=== PATIENT | male | born 1965 | race Caucasian/White ===

== ENCOUNTER 2016-10-03 13:52 | Observation (INO) | payer BC, MEDICAID ==
--- NOTE | 2016-10-03 13:58 | EDM.PDOC ---
ED HPI GENERAL MEDICAL PROBLEM - General Chief Complaint: Chest Pain Stated Complaint: CHEST PAINS, HIGH BLOOD PRESSURE Time Seen by Provider: 10/03/16 13:55 Source of Information: Reports: Patient History Limitations: Reports: No Limitations - History of Present Illness Onset: Gradual Onset Date: 10/03/16 Treatments PREMIUM REPRESENTATIVE: Reports: Other (see below) (took 2 aspirin prior to arrival) Chest Pain Score (Numeric/FACES): 5 - Related Data Allergies Allergy/AdvReac Type Severity Reaction Status Date / Time No Known Allergies Allergy Verified 10/03/16 13:58 Home Meds: Home Meds Allopurinol [Zyloprim] 100 mg PO BID 12/04/14 [History] Aspirin 81 mg PO DAILY 12/04/14 [History] Lisinopril [Prinivil] 20 mg PO DAILY 12/04/14 [History] Propranolol [Inderal LA] 80 mg PO DAILY 12/04/14 [History] Calcium Carbonate/Vitamin D3 [Calcium 500-Vit D3 600 Tablet] 1 tab PO DAILY [History] Lycopene 1 cap PO DAILY 10/03/16 [History] Multivitamins [Tab-A-Ender] 1 tab PO DAILY 10/03/16 [History] Potassium Chloride 20 meq PO DAILY 10/03/16 [History] Past Medical History Cardiovascular History: Reports: Other (See Below) (chest pain 2 years ago. myocardial perfusion test/stress test 11/2014 unremarkable. h/o high blood pressure on propranolol, took dose 5 am today.) ED ROS GENERAL - Review of Systems Review Of Systems: See Below Constitutional: Reports: Fatigue HEENT: Reports: No Symptoms Respiratory: Reports: No Symptoms Cardiovascular: Reports: Chest Pain Endocrine: Reports: No Symptoms GI/Abdominal: Reports: No Symptoms : Reports: No Symptoms Musculoskeletal: Reports: No Symptoms Skin: Reports: No Symptoms Neurological: Reports: No Symptoms Psychiatric: Reports: No Symptoms Hematologic/Lymphatic: Reports: No Symptoms Immunologic: Reports: No Symptoms ED EXAM, DIZZINESS - Physical Exam Exam: See Below Exam Limited By: No Limitations General Appearance: Alert, No Apparent Distress Ears: Normal External Exam, Normal Canal, Hearing Grossly Normal, Normal TMs Nose: Normal Inspection, Normal Mucosa, No Blood Throat/Mouth: Normal Inspection, Normal Lips, Normal Teeth, Normal Gums, Normal Oropharynx, Normal Voice, No Airway Compromise Head Exam: Atraumatic, Normocephalic Neck: Normal Inspection, Supple, Non-Tender, Full Range of Motion Respiratory/Chest: No Respiratory Distress, Lungs Clear, Normal Breath Sounds, No Accessory Muscle Use, Chest Non-Tender Cardiovascular: Normal Peripheral Pulses, Regular Rate, Rhythm, No Edema GI/Abdominal: Normal Bowel Sounds, Soft, Non-Tender Neurological: Alert, Normal Mood/Affect, CN II-XII Intact Back Exam: Normal Inspection, Full Range of Motion Extremities: Normal Inspection, No Pedal Edema Psychiatric: Normal Affect, Normal Mood Skin Exam: Warm, Dry, Intact, Normal Color EKG INTERPRETATION EKG Date: 10/03/16 EKG Interpretation Comments: sinus rate 62m , abn r-wave progression v2 /baseline wander in /v5./v6 Course - Vital Signs Text/Narrative:: Pt had taken 2 81mg aspirin prior to arrival. C/O chest pain midsternal and radiating to left since awoke at 5 am. Initial BP 197/107. After 3 sublinqual nitro BP 134/81. Chest pain a 5 out of 10 since 5 am. After 3 sublinqual nitro , pain 1-2 out of [address] Mac, hospitalist surgeon/president. He will admit pt here for ongoing care/evaluation. Discussed with pt and family. He agrees to admission here. Last Recorded V/S: Last Vital Signs Temp 36.0 C 10/03/16 13:58 Pulse 57 L 10/03/16 13:58 Resp 14 10/03/16 13:58 BP 137/86 10/03/16 14:21 Pulse Ox 100 10/03/16 13:58 - Orders/Labs/Meds Orders: Active Orders 24 hr Category Date Time Status EKG 12 Lead [EKG Documentation Completion] [RC] STAT Care 10/03/16 14:00 Active Sodium Chloride 0.9% [Normal Saline] 1,000 ml Med 10/03/16 14:37 Active IV .BOLUS Sodium Chloride 0.9% [Normal Saline] 1,000 ml Med 10/03/16 14:15 Active IV ASDIRECTED Medication Orders Sodium Chloride (Normal Saline) 1,000 mls @ 100 mls/hr IV ASDIRECTED DEANGELO Last Admin: 10/03/16 14:15 Dose: 100 mls/hr Sodium Chloride (Normal Saline) 1,000 mls @ 999 mls/hr IV .BOLUS ONE Stop: 10/03/16 15:37 Labs: Laboratory Tests 10/03/16 10/03/16 10/03/16 Range/Units 14:00 14:00 14:00 WBC 8.2 (5.0-10.0) 10^3/uL RBC 4.63 (4.6-6.2) 10^6/uL Hgb 15.5 (14.0-18.0) g/dL Hct 42.5 (40.0-54.0) % MCV 91.8 (80-100) fL MCH 33.5 (27.0-34.0) pg MCHC 36.5 H (33.0-35.0) g/dL Plt Count 175 (150-450) 10^3/uL Neut % (Auto) 58.6 (42.2-75.2) % Lymph % (Auto) 29.5 (20.5-50.1) % [place] % (Auto) 8.6 H (2-8) % Eos % (Auto) 2.8 (1.0-3.0) % Baso % (Auto) 0.5 (0.0-1.0) % PT 10.5 (9.0-12.0) SEC INR 1.0 (0.9-1.2) APTT 24.4 (22.0-34.0) SEC Sodium 138 (135-145) mmol/L Potassium 4.3 (3.6-5.0) mmol/L Chloride 102 (101-111) mmol/L Carbon Dioxide 28.0 (21.0-31.0) mmol/L Anion Gap 12.3 BUN 11 (7-18) mg/dL Creatinine 1.0 (0.6-1.3) mg/dL Est Cr Clr Drug Dosing 98.77 mL/min Estimated GFR (MDRD) > 60 BUN/Creatinine Ratio 11.00 Glucose 108 H (74-105) mg/dL Calcium 9.6 (8.4-10.2) mg/dl Total Bilirubin 1.4 H (0.2-1.0) mg/dL AST 38 (10-42) IU/L ALT 47 (10-60) IU/L Alkaline Phosphatase 51 (42-121) IU/L Creatine Kinase 112 (26-174) IU/L Troponin I < 0.02 (0.00-0.02) ng/ml B-Natriuretic Peptide 33 (0-100) pg/ml Total Protein 7.0 (6.7-8.2) g/dl Albumin 4.7 (3.2-5.5) g/dl Globulin 2.3 Albumin/Globulin Ratio 2.04 Meds: Medications Generic Name Dose Route Start Last Admin Trade Name Freq PRN Reason Stop Dose Admin Sodium Chloride 1,000 mls @ 100 mls/hr 10/03/16 14:15 10/03/16 14:15 Normal Saline IV 100 mls/hr ASDIRECTED DEANGELO Administration Sodium Chloride 1,000 mls @ 999 mls/hr 10/03/16 14:37 Normal Saline IV 10/03/16 15:37 .BOLUS ONE Discontinued Medications Generic Name Dose Route Start Last Admin Trade Name Freq PRN Reason Stop Dose Admin Nitroglycerin 0.4 mg 10/03/16 13:59 10/03/16 14:21 Nitrostat SL 10/03/16 14:00 0.4 mg ONETIME ONE Administration Departure - Departure Time of Disposition: 14:59 Disposition: Refer to Observation Condition: good Clinical Impression: Chest pain - Discharge Information - My Orders Last 24 Hours: My Active Orders 10/03/16 14:00 EKG 12 Lead [EKG Documentation Completion] [RC] STAT 10/03/16 14:15 Sodium Chloride 0.9% [Normal Saline] 1,000 ml IV ASDIRECTED 10/03/16 14:37 Sodium Chloride 0.9% [Normal Saline] 1,000 ml IV .BOLUS - Assessment/Plan Last 24 Hours: My Active Orders 10/03/16 14:00 EKG 12 Lead [EKG Documentation Completion] [RC] STAT 10/03/16 14:15 Sodium Chloride 0.9% [Normal Saline] 1,000 ml IV ASDIRECTED 10/03/16 14:37 Sodium Chloride 0.9% [Normal Saline] 1,000 ml IV .BOLUS
[2016-10-03] MEDS: Sodium Chloride 0.9% 1,000 ML IV SCH ×2 (14:15→17:03)
[2016-10-03] MEDS: Nitroglycerin 0.4 MG Tab.SL SL ONE ×2 (14:15→14:21)
[2016-10-03 14:33] LABS: CHLORIDE,CL 102 mmol/L (101-111); SODIUM,NA 138 mmol/L (135-145)
[2016-10-03] MEDS ORDERED: Sodium Chloride 0.9% 1,000 ML IV ONE (14:37)
--- NOTE | 2016-10-03 14:53 | CR ---
Clinical history: 50-year-old male chest pain. Interpretation: AP portable chest film unremarkable. Normal cardiac silhouette and no cephalization of vascular flow, signs of alveolar edema or dependent effusion (external flight service specialist leads). No lung mass, hilar lymphadenopathy or new focal lobar infiltrate when compared to 18 October 2010. ([facility] r[facility] cluster surgical sanjay left upper quadrant near the GE junction) No atelectasis/collapse. No pneumothorax. Tray thorax unremarkable. CONCLUSION: No acute new cardiopulmonary abnormality since exam of October 2010.
[2016-10-03] MEDS ORDERED: Ibuprofen 400 MG Tab PO PRN (16:02)
[2016-10-03] MEDS ORDERED: Sodium Chloride 0.9% 10 ML Syringe FLUSH PRN (16:02)
[2016-10-03] MEDS ORDERED: Ondansetron 4 MG Tab.DIS PO PRN (16:02)
[2016-10-03] MEDS ORDERED: Acetaminophen 325 MG Tab PO PRN (16:02)
--- NOTE | 2016-10-03 16:26 | PCM.HP ---
H&P History of Present Illness - General Date of Service: 10/03/16 Admit Problem/Dx: Admission Diagnosis/Problem Admission Diagnosis/Problem Chest pain Source of Information: Patient - History of Present Illness Initial Comments - Free Text/Narative: the patient is a 50-year-old gentleman with a history of anxiety, hypertension. The patient has had the prior cardiac workup for complaints of nonspecific chest symptoms about 2 years ago. Apparently back then the stress test was normal. in the past few weeks the patient has had the problem with the anxiety unable to sleep which is improved off after taking the trazodone in the evenings. The patient woke up around 5:00 morning when was feeling better chest discomfort. This was mid sternal moderate pain. no association with shortness of breath. He also noticed that his blood pressure was high up in the 200s systolic. He was leaking around the big but since symptoms did not improve and the blood pressure was continued to be elevated he came into the emergency room. He was given 3 sublingual nitroglycerin and with that the pain significantly improved. Blood pressure also improved. He says right now has pain 3/10 but only when he is thinking about it when he is distracted he does not feel any pain. He denies recent leg swelling, no cough, no fever. He has a h/o GERD but that has resolved with surgery many years ago. Chest Pain Score (Numeric/FACES): 5 - Related Data Allergies/Adverse Reactions: Allergies Allergy/AdvReac Type Severity Reaction Status Date / Time No Known Allergies Allergy Verified 10/03/16 16:15 Home Medications: Home Meds Allopurinol [Zyloprim] 100 mg PO BID 12/04/14 [History] Aspirin 81 mg PO DAILY 12/04/14 [History] Lisinopril [Prinivil] 20 mg PO DAILY 12/04/14 [History] Propranolol [Inderal LA] 80 mg PO DAILY 12/04/14 [History] Calcium Carbonate/Vitamin D3 [Calcium 500-Vit D3 600 Tablet] 1 tab PO DAILY [History] Lycopene 1 cap PO DAILY 10/03/16 [History] Multivitamins [Tab-A-Ender] 1 tab PO DAILY 10/03/16 [History] Potassium Chloride 20 meq PO DAILY 10/03/16 [History] Past Medical History HEENT History: Reports: Other (See Below) Other HEENT History: wears glasses Cardiovascular History: Reports: Other (See Below) Other Cardiovascular History: Hx chest pain 10 years ago, normal stress test in 2015 Respiratory History: Reports: SOB Psychiatric History: Reports: Anxiety, Other (See Below) (sleep disorder) - Infectious Disease History Infectious Disease History: Reports: Chicken Pox - Past Surgical History Cardiovascular Surgical History: Reports: None GI Surgical History: Reports: Hernia, Abdominal, Other (See Below) Other GI Surgeries/Procedures: Stomach stapled to esophagus for history of bad acid reflux. No further acid reflux issues since this surgery in . Musculoskeletal Surgical History: Reports: Other (See Below) Other Musculoskeletal Surgeries/Procedures:: Hx of vitamin D deficiency Social & Family History - Family History Cardiac: Reports: Hypertension (father) - Tobacco Use Smoking Status *Q: Former Smoker Years of Tobacco use: 15 Packs/Tins Daily: 0.5 Used Tobacco, but Quit: Yes Month Tobacco Last Used: October Second Hand Smoke Exposure: No - Caffeine Use Caffeine Use: Reports: Coffee, Soda - Alcohol Use Days Per Week of Alcohol Use: 6 Number of Drinks Per Day: 2 Total Drinks Per Week: 12 Date of Last Drink: 10/02/16 Time of Last Drink: 21:00 - Recreational Drug Use Recreational Drug Use: No H&P Review of Systems - Review of Systems: Review Of Systems: See Below General: Denies: Fever Pulmonary: Denies: Shortness of Breath, Wheezing, Hemoptysis Cardiovascular: Reports: Chest Pain. Denies: Palpitations Gastrointestinal: Denies: Abdominal Pain Genitourinary: Denies: Dysuria Psychiatric: Denies: Confusion Exam - Exam Exam: See Below - Vital Signs Vital Signs: Last Vital Signs Temp 36.0 C 10/03/16 13:58 Pulse 57 L 10/03/16 13:58 Resp 14 10/03/16 13:58 BP 137/86 10/03/16 14:21 Pulse Ox 100 10/03/16 13:58 Weight: 142.882 kg - Exam Quality Assessment: No: Supplemental Oxygen General: Alert, Oriented Neck: Supple Lungs: Clear to Auscultation, Normal Respiratory Effort Cardiovascular: Regular Rate, Regular Rhythm Abdomen: Normal Bowel Sounds, Soft, Other (obese) Back Exam: Normal Inspection Extremities: Normal Inspection. No: Edema Skin: Warm, Dry, Intact Neuro Extensive - Mental Status: Alert, Oriented x3, Normal Mood/Affect, Normal Cognition - Patient Data Result Diagrams: 10/03/16 14:00 10/03/16 14:00 Imaging Impressions last 24 hrs: chest x-ray, per reading: no acute change *Q Meaningful Use (ADM) - VTE *Q VTE Criteria *Q: - Stroke *Q Stroke Criteria *Q: - AMI *Q AMI Criteria *Q: - Problem List (1) Chest pain SNOMED Code(s): 54808168 ICD Code: R07.9 - CHEST PAIN, UNSPECIFIED Status: Acute Current Visit: Yes (2) Hypertensive urgency SNOMED Code(s): 706279630 ICD Code: I16.0 - HYPERTENSIVE URGENCY Status: Acute Current Visit: Yes Problem List Initiated/Reviewed/Updated: Yes Orders Last 24hrs: Active Orders 24 hr Category Date Time Status Antiembolic Devices [RC] PER UNIT ROUTINE Care 10/03/16 16:04 Ordered Oxygen Therapy [RC] PRN Care 10/03/16 16:02 Ordered Peripheral IV Care [RC] . DIRECTED Care 10/03/16 16:04 Ordered Telemetry Monitoring [Cardiac Monitoring] [RC] . Care 10/03/16 15:58 Ordered DIRECTED Up ad Pennie [RC] ASDIRECTED Care 10/03/16 16:02 Ordered VTE/DVT Education [RC] PER UNIT ROUTINE Care 10/03/16 16:02 Ordered Vital Signs [RC] Q4H Care 10/03/16 16:02 Ordered Regular Diet [DIET] Diet 10/03/16 Dinner Ordered BASIC METABOLIC PANEL,BMP [CHEM] AM Lab 10/04/16 05:15 Ordered CBC WITH AUTO DIFF [HEME] AM Lab 10/04/16 05:15 Ordered TROPONIN I [CHEM] AM Lab 10/04/16 05:11 Ordered TROPONIN I [CHEM] Routine Lab 10/03/16 21:00 Ordered Acetaminophen [Tylenol] Med 10/03/16 16:02 Ordered 650 mg PO Q4H PRN Allopurinol [Zyloprim] Med 10/03/16 21:00 Ordered 100 mg PO BID Aspirin Med 10/04/16 09:00 Ordered 81 mg PO DAILY Heparin Sodium Med 10/03/16 22:00 Ordered 5,000 units SUBCUT Q8HR Ibuprofen [Motrin] Med 10/03/16 16:02 Ordered 400 mg PO Q6H PRN Lisinopril [Prinivil] Med 10/04/16 09:00 Ordered 20 mg PO DAILY Multivitamins [Tab-A-Ender] Med 10/04/16 09:00 Ordered 1 tab PO DAILY Ondansetron [Zofran ODT] Med 10/03/16 16:02 Ordered 4 mg PO Q6H PRN Potassium Chloride [Potassium Chloride] Med 10/04/16 09:00 Ordered 20 meq PO DAILY Propranolol [Inderal LA] Med 10/04/16 09:00 Ordered 80 mg PO DAILY Sodium Chloride 0.9% [Saline Flush] Med 10/03/16 16:02 Ordered 10 ml FLUSH ASDIRECTED PRN traZODone Med 10/03/16 16:15 Ordered 50 mg PO .QHS Antiembolic Hose [OM.PC] Per Unit Routine Oth 10/03/16 16:03 Ordered Peripheral IV Insertion Adult [OM.PC] Routine Oth 10/03/16 16:02 Ordered Saline Lock Insert [OM.PC] Routine Oth 10/03/16 16:02 Ordered Resuscitation Status Routine Resus Stat 10/03/16 16:02 Ordered Medication Orders Acetaminophen (Tylenol) 650 mg PO Q4H PRN PRN Reason: Pain (Mild 1-3)/fever Allopurinol (Zyloprim) 100 mg PO BID [facility] Aspirin (Aspirin) 81 mg PO DAILY [facility] Heparin Sodium (Porcine) (Heparin Sodium) 5,000 units SUBCUT Q8HR [facility] Ibuprofen (Motrin) 400 mg PO Q6H PRN PRN Reason: Pain (mild 1-3) Lisinopril (Prinivil) 20 mg PO DAILY [facility] Multivitamins (Thera) 1 each PO DAILY [facility] Ondansetron HCl (Zofran Odt) 4 mg PO Q6H PRN PRN Reason: nausea, able to take PO Potassium Chloride (Klor-Con 10) 20 meq PO WITHBREAKFAST [facility] Propranolol HCl (Inderal La) 80 mg PO DAILY [facility] Sodium Chloride (Saline Flush) 10 ml FLUSH ASDIRECTED PRN PRN Reason: Keep Vein Open Trazodone HCl (Trazodone) 50 mg PO BEDTIME [facility] Assessment/Plan Comment:: the patient is a 50-year-old gentleman who presented with a blood pressure in the 200 systolic range associated with chest pain. The patient received nitroglycerin and aspirin in the emergency room. Blood pressure improved chest pain is resolving. Chest pain Differential diagnosis includes ischemic cardiac causes This is somewhat less likely due to recent normal stress test, the monitor on telemetry for arrhythmia we'll monitor troponins no apparent pneumonia on chest x-ray No reproducible component for musculoskeletal causes Uncontrolled hypertension, hypertensive urgency with chest pain Blood pressure improved with nitroglycerin. Will monitor blood pressure, continue propranolol for now. Anxiety and sleep disorder Continue trazodone DVT prophylaxis with subcutaneous heparin
[2016-10-03] MEDS ORDERED: traZODone 50 MG Tab PO SCH (21:00)
[2016-10-03] MEDS: Heparin Sodium 5,000 Units/ML Vial SUBCUT SCH (22:26)
[2016-10-03] MEDS: Allopurinol 100 MG Tab PO SCH (22:26)
[2016-10-04] MEDS: Heparin Sodium 5,000 Units/ML Vial SUBCUT SCH (05:48)
[2016-10-04 07:01] LABS: CHLORIDE,CL 103 mmol/L (101-111); SODIUM,NA 139 mmol/L (135-145)
[2016-10-04] MEDS ORDERED: Potassium Chloride 10 MEQ Tab.ER PO SCH (08:00)
[2016-10-04] MEDS ORDERED: Propranolol 80 MG Cap.ER PO SCH (09:00)
[2016-10-04] MEDS ORDERED: Lisinopril 20 MG Tab PO SCH (09:00)
[2016-10-04] MEDS ORDERED: Aspirin 81 MG Tab.Chew PO SCH (09:00)
[2016-10-04] MEDS ORDERED: Multivitamins,Therapeutic Tab PO SCH (09:00)
[2016-10-04] MEDS: Allopurinol 100 MG Tab PO SCH (09:10)
[2016-10-04 09:11] VITALS: BP 148/80
--- NOTE | 2016-10-04 10:40 | PCM.DCSUM1 ---
Discharge Summary - Hospital Course Free Text/Narrative:: the patient is a 50-year-old gentleman with a history of anxiety, hypertension. The patient has had the prior cardiac workup for complaints of nonspecific chest symptoms about 2 years ago. Apparently back then the stress test was normal. in the past few weeks the patient has had the problem with the anxiety unable to sleep which is improved off after taking the trazodone in the evenings. The patient woke up around 5:00 morning when was feeling better chest discomfort. This was mid sternal moderate pain. no association with shortness of breath. He also noticed that his blood pressure was high up in the 200s systolic. He was working around the house but since symptoms did not improve and the blood pressure was continued to be elevated he came into the emergency room. He was given 3 sublingual nitroglycerin and with that the pain significantly improved. Blood pressure also improved. He has a h/o GERD but that has resolved with surgery many years ago. Chest pain during his stay the patient's cardiac enzymes were negative, telemetry showed no significant arrhythmia. Chest pain resolved shortly after admission and did not return Uncontrolled hypertension, hypertensive urgency with chest pain Blood pressure improved with nitroglycerin. continued propranolol and lisinopril the patient has a blood pressure machine at home, he was asked to make a diary. He lives with his diary to his primary care physician on the next visit next week. I asked him if the blood pressure is consistently above 150 to increase his listener twice a day dosing. Anxiety and sleep disorder Continue trazodone - Discharge Data Discharge Date: 10/04/16 Discharge Disposition: Home, Self-Care 01 Condition: Good - Discharge Diagnosis/Problem(s) (1) Chest pain SNOMED Code(s): 30891976 ICD Code: R07.9 - CHEST PAIN, UNSPECIFIED Status: Acute Current Visit: Yes (2) Hypertensive urgency SNOMED Code(s): 234615779 ICD Code: I16.0 - HYPERTENSIVE URGENCY Status: Acute Current Visit: Yes - Patient Instructions Diet: Usual Diet as Tolerated Activity: As Tolerated - Discharge Plan Home Medications: Home Meds Allopurinol [Zyloprim] 100 mg PO BID 12/04/14 [History] Aspirin 81 mg PO DAILY 12/04/14 [History] Lisinopril [Prinivil] 20 mg PO DAILY 12/04/14 [History] Propranolol [Inderal LA] 80 mg PO DAILY 12/04/14 [History] Calcium Carbonate/Vitamin D3 [Calcium 500-Vit D3 600 Tablet] 1 tab PO DAILY [History] Lycopene 1 cap PO DAILY 10/03/16 [History] Multivitamins [Tab-A-Ender] 1 tab PO DAILY 10/03/16 [History] Potassium Chloride 20 meq PO DAILY 10/03/16 [History] traZODone 50 mg PO BEDTIME 10/04/16 [History] traZODone 50 mg PO BEDTIME tablet 10/04/16 [Rx] Patient Handouts: Nonspecific Chest Pain, [id number], Hypertension Referrals: PCP,None [Ordering Only Provider] - (in 3-4 days - dr. Colmenares) - Discharge Summary/Plan Comment DC Time >30 min.: No - Review of Systems General: Denies: Fever Pulmonary: Denies: shortness of breath Gastrointestinal: Denies: Abdominal pain Neurological: Denies: Confusion - Patient Data Vitals - Most Recent: Last Vital Signs Temp 36.4 C 10/04/16 08:27 Pulse 83 10/04/16 08:27 Resp 20 10/04/16 08:27 BP 148/80 H 10/04/16 09:10 Pulse Ox 99 10/04/16 08:27 Weight - Most Recent: 142.882 kg I&O - Last 24 hours: Intake & Output 10/03/16 10/04/16 10/04/16 22:59 06:59 14:59 Intake Total 460 Balance 460 Lab Results - Last 24 hrs: Laboratory Results - last 24 hr 10/03/16 10/04/16 10/04/16 Range/Units 20:58 06:30 06:30 WBC 6.7 (5.0-10.0) 10^3/uL RBC 4.70 (4.6-6.2) 10^6/uL Hgb 15.5 (14.0-18.0) g/dL Hct 44.2 (40.0-54.0) % MCV 94.0 (80-100) fL MCH 33.0 (27.0-34.0) pg MCHC 35.1 H (33.0-35.0) g/dL Plt Count 168 (150-450) 10^3/uL Neut % (Auto) 53.0 (42.2-75.2) % Lymph % (Auto) 34.8 (20.5-50.1) % [place] % (Auto) 7.6 (2-8) % Eos % (Auto) 4.2 H (1.0-3.0) % Baso % (Auto) 0.4 (0.0-1.0) % Sodium 139 (135-145) mmol/L Potassium 4.0 (3.6-5.0) mmol/L Chloride 103 (101-111) mmol/L Carbon Dioxide 27.0 (21.0-31.0) mmol/L Anion Gap 13.0 BUN 9 (7-18) mg/dL Creatinine 1.0 (0.6-1.3) mg/dL Est Cr Clr Drug Dosing 98.77 mL/min Estimated GFR (MDRD) > 60 Glucose 116 H (74-105) mg/dL Calcium 8.8 (8.4-10.2) mg/dl Troponin I < 0.02 < 0.02 (0.00-0.02) ng/ml Med Orders - Current: Current Medications Acetaminophen (Tylenol) 650 mg PO Q4H PRN PRN Reason: Pain (Mild 1-3)/fever Allopurinol (Zyloprim) 100 mg PO BID [facility] Last Admin: 10/04/16 09:10 Dose: 100 mg Aspirin (Aspirin) 81 mg PO DAILY [facility] Last Admin: 10/04/16 09:10 Dose: 81 mg Heparin Sodium (Porcine) (Heparin Sodium) 5,000 units SUBCUT Q8HR [facility] Last Admin: 10/04/16 05:48 Dose: Not Given Ibuprofen (Motrin) 400 mg PO Q6H PRN PRN Reason: Pain (mild 1-3) Lisinopril (Prinivil) 20 mg PO DAILY [facility] Last Admin: 10/04/16 09:10 Dose: 20 mg Multivitamins (Thera) 1 each PO DAILY [facility] Last Admin: 10/04/16 09:08 Dose: 1 each Ondansetron HCl (Zofran Odt) 4 mg PO Q6H PRN PRN Reason: nausea, able to take PO Potassium Chloride (Klor-Con 10) 20 meq PO WITHBREAKFAST [facility] Last Admin: 10/04/16 09:09 Dose: 20 meq Propranolol HCl (Inderal La) 80 mg PO DAILY [facility] Last Admin: 10/04/16 09:11 Dose: 80 mg Sodium Chloride (Saline Flush) 10 ml FLUSH ASDIRECTED PRN PRN Reason: Keep Vein Open Trazodone HCl (Trazodone) 50 mg PO BEDTIME [facility] Last Admin: 10/03/16 22:26 Dose: 50 mg Discontinued Medications Sodium Chloride (Normal Saline) 1,000 mls @ 100 mls/hr IV ASDIRECTED [facility] Last Admin: 10/03/16 17:03 Dose: Not Given Sodium Chloride (Normal Saline) 1,000 mls @ 999 mls/hr IV .BOLUS ONE Stop: 10/03/16 15:37 Last Admin: 10/03/16 15:18 Dose: 999 mls/hr Nitroglycerin (Nitrostat) 0.4 mg SL ONETIME ONE Stop: 10/03/16 14:00 Last Admin: 10/03/16 14:21 Dose: 0.4 mg - Exam General: Reports: alert, oriented Neck: Reports: supple Lungs: Reports: Clear to auscultation, Normal respiratory effort Cardiovascular: Reports: Regular Rate, Regular Rhythm Abdomen: Reports: bowel sounds present, soft, no tenderness, no distension Extremities: Reports: no edema, normal pulses *Q Meaningful Use (DIS) - VTE *Q VTE Criteria *Q: - Stroke *Q Stroke Criteria *Q: - AMI *Q AMI Criteria *Q:
--- NOTE | 2016-10-08 10:51 | EKG ---
10/03/2016- DAYDAY PICKENS - EKG per my reading, shows sinus rhythm with no acute ST changes. [facility] /[id number]
== END 2016-10-04 11:20 | disposition home or self-care (01) ==
LOC: DL.ED 13:52 → DL.MS 15:27 → UNDOADMOB 15:27 → DL.MS 16:02
PROVIDERS: ADMIT Internal Medicine; ATTEND Internal Medicine
DX: R07.89 Other chest pain (principal); I10 Essential (primary) hypertension; Z79.82 Long term (current) use of aspirin; Z79.899 Other long term (current) drug therapy
CPT/HCPCS: 36415; 71010; 80048; 80053; 82550; 83880; 84484; 85025; 85610; 85730; 93005; 99285; A9270; J7030; G0378

== ENCOUNTER 2020-12-17 09:11 | Emergency (ER) | payer MEDICAID ==
--- NOTE | 2020-12-17 09:21 | EDM.PDOC ---
"ED HPI GENERAL MEDICAL PROBLEM - General Chief Complaint: Headache Stated Complaint: [id number] HEADACHE X 3 DAYS Time Seen by Provider: 12/17/20 09:20 Source of Information: Reports: Patient, Old Records, RN, RN Notes Reviewed History Limitations: Reports: No Limitations - History of Present Illness INITIAL COMMENTS - FREE TEXT/NARRATIVE: Patient arrives complaining of left posterior headaches since . Pt states he has a history of cluster headaches. On Thursday he complained of left ear pain and migrated up to the left side of the head. He has tried taking Aleve/Excedrin with no relief. Denies visual changes, cough, runny nose, fever, chills, no neck pain. Admits to facial pressure Rt>Left. Duration: Day(s): (3), Recurring Location: Reports: Head Quality: Reports: Ache, Sharp Severity: Severe Improves with: Reports: None Worsens with: Reports: None Associated Symptoms: Reports: No Other Symptoms - Related Data Allergies Allergy/AdvReac Type Severity Reaction Status Date / Time No Known Allergies Allergy Verified 12/17/20 09:25 Home Meds: Home Meds Aspirin 81 mg PO DAILY 12/04/14 [History] Lisinopril [Prinivil] 20 mg PO DAILY 12/04/14 [History] Propranolol [Inderal LA] 80 mg PO DAILY 12/04/14 [History] Calcium Carbonate/Vitamin D3 [Calcium 500-Vit D3 600 Tablet] 1 tab PO DAILY 10/03/16 [History] Lycopene 1 cap PO DAILY 10/03/16 [History] Multivitamins [Tab-A-Ender] 1 tab PO DAILY 10/03/16 [History] Potassium Chloride 20 meq PO DAILY 10/03/16 [History] traZODone 50 mg PO BEDTIME 10/04/16 [History] allopurinoL [Zyloprim] 100 mg PO DAILY 10/21/16 [History] Past Medical History HEENT History: Reports: Other (See Below) Other HEENT History: wears glasses Cardiovascular History: Reports: Other (See Below) Other Cardiovascular History: Hx chest pain 10 years ago, normal stress test in 2014 Respiratory History: Reports: SOB Neurological History: Reports: Other (See Below) (Cluster headaches) Psychiatric History: Reports: Anxiety, Other (See Below) (sleep disorder) - Infectious Disease History Infectious Disease History: Reports: Chicken Pox - Past Surgical History Cardiovascular Surgical History: Reports: None GI Surgical History: Reports: Hernia, Abdominal, Other (See Below) Other GI Surgeries/Procedures: Stomach stapled to esophagus for history of bad acid reflux. No further acid reflux issues since this surgery in . Musculoskeletal Surgical History: Reports: Other (See Below) Other Musculoskeletal Surgeries/Procedures:: Hx of vitamin D deficiency Social & Family History - Family History Cardiac: Reports: Hypertension (father) - Caffeine Use Caffeine Use: Reports: Coffee, Soda - Living Situation & Occupation Living situation: Reports: with Family ED ROS GENERAL - Review of Systems Review Of Systems: Comprehensive ROS is negative, except as noted in HPI. - Physical Exam Exam: See Below Exam Limited By: No Limitations General Appearance: Alert, WD/WN, No Apparent Distress, Obese Eye Exam: Bilateral Eye: EOMI, Normal Inspection, PERRL Ears: Normal External Exam, Normal Canal, Hearing Grossly Normal, Normal TMs Nose: Nasal Drainage, Other (Inflamed nasal mucosa, injected turbinates R>L) Throat/Mouth: Normal Inspection, Normal Lips, Normal Teeth, Normal Gums, Normal Oropharynx, Normal Voice, No Airway Compromise Head Exam: Atraumatic, Normocephalic Neck: Normal Inspection, Supple, Non-Tender, Full Range of Motion Respiratory/Chest: No Respiratory Distress, Lungs Clear, Normal Breath Sounds, No Accessory Muscle Use, Chest Non-Tender Cardiovascular: Normal Peripheral Pulses, Regular Rate, Rhythm, No Edema, No Gallop, No JVD, No Murmur, No Rub Neuro Exam (Abbreviated): Alert, Oriented, CN II-XII Intact, Normal Cognition, Normal Gait, No Motor/Sensory Deficits Extremities: Normal Inspection Psychiatric: Normal Affect, Normal Mood Skin Exam: Warm, Dry, Intact, Normal Color, No Rash Course - Vital Signs Last Recorded V/S: Last Vital Signs Temp 97.6 F 12/17/20 09:27 Pulse 73 12/17/20 09:27 Resp 18 12/17/20 09:27 BP 168/94 H 12/17/20 09:27 Pulse Ox 100 12/17/20 09:27 - Orders/Labs/Meds Orders: Active Orders 24 hr Category Date Time Status Head wo Cont [CT] Stat Exams 12/17/20 09:28 Ordered Meds: Medications Discontinued Medications Generic Name Dose Route Start Last Admin Trade Name Freq PRN Reason Stop Dose Admin Butorphanol Tartrate 2 mg 12/17/20 09:29 12/17/20 09:47 Butorphanol 2 Mg/Ml Sdv IM 12/17/20 09:30 2 mg ONETIME ONE Administration - Radiology Interpretation Free Text/Narrative:: [facility] [place] [facility] Final Radiology Report Call: [phone] assistance Online chat: [email or web address] Name: DAYDAY PICKENS Age: 54Years M Date: 12/17/2020 SSN: -- : 1965 Study: CT HEAD WO CONT Requesting Physician: KIMBERLY BASS Images: 163 Addl Studies: Provided Clinical History: Left parietal/occipital headache, severe Contrast: Without Contrast Medium: Contrast Amount: Contrast Method: Page 1 of 2 PROCEDURE INFORMATION: Exam: CT Head Without Contrast Exam date and time: 12/17/2020 9:32 AM Age: 54 years old Clinical indication: Pain; Headache; Additional info: Left parietal/occipital headache, severe TECHNIQUE: Imaging protocol: Computed tomography of the head without contrast. Radiation optimization: All CT scans at this facility use at least one of these dose optimization techniques: automated exposure control; mA and/or kV adjustment per patient size (includes targeted exams where dose is matched to clinical indication); or iterative reconstruction. COMPARISON: No relevant prior studies available. FINDINGS: Brain: Normal. No hemorrhage. Unremarkable white matter. No mass effect. Cerebral ventricles: No ventriculomegaly. Paranasal sinuses: There is near total opacification of the visualized right maxillary sinus, apparently with chronic disease. Minor chronic mucosal disease involves some ethmoid air cells. The visualized paranasal sinuses and air cells are otherwise clear. Mastoid air cells: Visualized mastoid air cells are well aerated. Bones/joints: Unremarkable. No acute fracture. Soft tissues: Unremarkable. IMPRESSION: No CT evidence for acute intracranial abnormality. Thank you for allowing us to participate in the care of your patient. DAYDAY PICKENS | Final Radiology Report CONFIDENTIALITY STATEMENT This report is intended only for use by the referring physician, and only in accordance with law. If you received this in error, call [phone]. Page 2 of 2 Dictated and Authenticated by: Miah Meek MD 12/17/2020 10:09 AM Central Time ([place] & Winter) Departure - Departure Time of Disposition: 10:12 Disposition: Home, Self-Care 01 Condition: Good Clinical Impression: Acute headache Qualifiers: Headache type: unspecified Intractability: intractable Qualified Code(s): R51.9 - Headache, unspecified Maxillary sinusitis Qualifiers: Chronicity: subacute Qualified Code(s): J01.00 - Acute maxillary sinusitis, unspecified - Discharge Information *PRESCRIPTION DRUG MONITORING PROGRAM REVIEWED*: No *COPY OF PRESCRIPTION DRUG MONITORING REPORT IN PATIENT [place]: No Instructions: General Headache Without Cause, [id number], Sinusitis, Adult, [id number] Forms: ED Department Discharge Additional Instructions: Rx: Augmentin 875mg Rx: Decadron (Dexamethasone) 4mg Rx: [place] 5mg/325mg *Do not drive while under the influence of this medication. Follow up in clinic if not improving as expected. Sepsis Event Note (ED) - Focused Exam Vital Signs: Vital Signs Temp Pulse Resp BP Pulse Ox 12/17/20 09:27 97.6 F 73 18 168/94 H 100 - My Orders Last 24 Hours: My Active Orders 12/17/20 09:28 Head wo Cont [CT] Stat - Assessment/Plan Last 24 Hours: My Active Orders 12/17/20 09:28 Head wo Cont [CT] Stat"
[2020-12-17 09:28] VITALS: BP 168/94; PULSE 73
[2020-12-17] MEDS ORDERED: Butorphanol 2 MG/ML SDV IM ONE (09:29)
--- NOTE | 2020-12-17 10:10 | CT ---
PROCEDURE INFORMATION: Exam: CT Head Without Contrast Exam date and time: 12/17/2020 9:32 AM Age: 54 years old Clinical indication: Pain; Headache; Additional info: Left parietal/occipital headache, severe TECHNIQUE: Imaging protocol: Computed tomography of the head without contrast. Radiation optimization: All CT scans at this facility use at least one of these dose optimization techniques: automated exposure control; mA and/or kV adjustment per patient size (includes targeted exams where dose is matched to clinical indication); or iterative reconstruction. COMPARISON: No relevant prior studies available. FINDINGS: Brain: Normal. No hemorrhage. Unremarkable white matter. No mass effect. Cerebral ventricles: No ventriculomegaly. Paranasal sinuses: There is near total opacification of the visualized right maxillary sinus, apparently with chronic disease. Minor chronic mucosal disease involves some ethmoid air cells. The visualized paranasal sinuses and air cells are otherwise clear. Mastoid air cells: Visualized mastoid air cells are well aerated. Bones/joints: Unremarkable. No acute fracture. Soft tissues: Unremarkable. IMPRESSION: No CT evidence for acute intracranial abnormality.
== END 2020-12-17 10:24 | disposition home or self-care (01) ==
LOC: DL.ED 09:11
DX: J01.00 Acute maxillary sinusitis, unspecified (principal); Z79.82 Long term (current) use of aspirin; Z79.899 Other long term (current) drug therapy
CPT/HCPCS: 70450; 96372; 99284; J0595